=== PATIENT | male | born 1970 | race Caucasian/White ===

== ENCOUNTER 2018-03-17 15:36 | Emergency (ER) | payer SELFPAY ==
[2018-03-17 16:31] VITALS: BP 123/83; PULSE 89; TEMP 98.4; BMI 30.8
[2018-03-17] MEDS ORDERED: KETOROLAC TROMETHAMINE 60 MG/2 ML VIAL IM ONE (17:02)
[2018-03-17] MEDS ORDERED: KETOROLAC TROMETHAMINE 60 MG/2 ML VIAL ONE (17:04)
--- NOTE | 2018-03-17 17:08 | PDOC ---
History of Present Illness - General Chief Complaint: Chronic pain Stated Complaint: BACK PAIN Time Seen by Provider: 03/17/18 16:48 History Source: Patient Exam Limitations: Clinical Condition - History of Present Illness Initial Comments: 03/17/18 17:03 Patient with history of chronic back pain for 3 years now seen in [place] a month ago with CAT scan of the back showed multiple herniated disc and discharged with orthopedist follow-up the patient hasn't been able to follow-up because not having insurance. Patient reported the pain is in the lower back radiating up radiating to the sides of the lower back when he move from sitting up or laying down. Patient just moved to [place] from [place]. Patient reported 8 on a 10 lower back pain now worse with movement when laying down and getting up Past History - Past Medical History Allergies/Adverse Reactions: Allergies Allergy/AdvReac Type Severity Reaction Status Date / Time No Known Allergies Allergy Verified 03/17/18 16:31 Home Medications: Ambulatory Orders Methocarbamol [Robaxin -] 750 mg PO Q8H PRN #20 tablet 03/17/18 Naproxen 500 mg PO BID PRN #20 tablet. 03/17/18 Oxycodone HCl/Acetaminophen [Percocet 5-325 mg Tablet] 1 tab PO Q6H PRN #5 tablet MDD 4 03/17/18 COPD: No Other medical history: herniated disc - Suicide/Smoking/Psychosocial Hx Smoking History: Current every day smoker Have you smoked in the past 12 months: Yes Number of Cigarettes Smoked Daily: 10 Information on smoking cessation initiated: No Hx Alcohol Use: No Drug/Substance Use Hx: No Substance Use Type: None Review of Systems - Review of Systems Able to Perform ROS?: Yes Is the patient limited [place] proficient: No Constitutional: No: Chills, Diaphoresis, Fever, Loss of Appetite, Malaise, Night Sweats, Weakness, Weight Stable, Unintentional Wgt. Loss, Unexplained wgt Loss, Other HEENTM: No: Eye Pain, Blurred Vision, Tearing, Recent change in vision, Double Vision, Cataracts, Ear Pain, Ocular Prothesis, Ear Discharge, Nose Pain, Nose Congestion, Tinnitus, Nose Bleeding, Hearing Loss, Throat Pain, Throat Swelling , Mouth Pain, Dental Problems, Difficulty Swallowing, Mouth Swelling, Other Respiratory: No: Cough, Orthopnea, Shortness of Breath, SOB with Exertion, SOB at Rest, Stridor, Wheezing, Productive cough, Hemoptysis, Other Cardiac (ROS): No: Chest Pain, Edema, Irregular Heart Rate, Lightheadedness, Palpitations, Syncope, Chest Tightness, Other ABD/GI: No: Abdominal Distended, Abd. Pain w/ defecation, Blood Streaked Bowels , Constipated, Diarrhea, Difficulty Swallowing, Nausea, Poor Appetite, Poor Fluid Intake, Rectal Bleeding, Vomiting, Indigestion, Abdominal cramping, Tarry Stools, Other Musculoskeletal: Yes: See HPI, Back Pain (lower back), Joint Pain (lower back) All Other Systems: Reviewed and Negative *Physical Exam - Vital Signs Last Vital Signs Temp Pulse Resp BP Pulse Ox 98.4 F 89 19 123/83 100 03/17/18 16:24 03/17/18 16:24 03/17/18 16:24 03/17/18 16:24 03/17/18 16:24 - Physical Exam Comments: 03/17/18 17:06 GENERAL: Well developed, well nourished. Awake and alert. No acute distress. HEENT: Normocephalic, atraumatic. PERRLA, EOMI. No conjunctival pallor. Sclera are non- icteric. Moist mucous membranes. Oropharynx is clear. NECK: Supple. Full ROM. No JVD. Carotid pulses 2+ and symmetric, without bruits. No thyromegaly. No lymphadenopathy. CARDIOVASCULAR: Regular rate and rhythm. No murmurs, rubs, or gallops. Distal pulses are 2+ and symmetric. PULMONARY: No evidence of respiratory distress. Lungs clear to auscultation bilaterally. No wheezing, rales or rhonchi. ABDOMINAL: Soft. Non-tender. Non-distended. No rebound or guarding. No organomegaly. Normoactive bowel sounds. MUSCULOSKELETAL : Moderate tenderness to right paravertebral muscle of L2-S1. Pain worse when external rotation of hip No CVA tenderness. EXTREMITIES: No cyanosis. No clubbing. No edema. No calf tenderness. SKIN: Warm and dry. Normal capillary refill. No rashes. No jaundice. NEUROLOGICAL: Alert, awake, appropriate. Cranial nerves 2-12 intact. No deficits to light touch and temperature in face, upper extremities and lower extremities. No motor deficits in the in face, upper extremities and lower extremities. Normoreflexic in the upper and lower extremities. Normal speech. Toes are down- going bilaterally. Gait is normal without ataxia. PSYCHIATRIC: Cooperative. Good eye contact. Appropriate mood and affect. General Appearance: Yes: Nourished, Appropriately Dressed Medical Decision Making - Medical Decision Making 03/17/18 17:08 patient presenting with history of chronic back pain with multiple herniated disc on CT scan as per patient. No need for imaging today as patient just had CTs done a month ago. Toradol 60 mg IM given for pain and patient discharged with orthopedics follow-up in NSAIDs and muscle relaxer *DC/Admit/Observation/Transfer Diagnosis at time of Disposition: Lumbago Qualifiers: Chronicity: chronic Back pain laterality: bilateral Sciatica presence: without sciatica Qualified Code(s): M54.5 - Low back pain; G89.29 - Other chronic pain - Discharge Dispostion Disposition: HOME Condition at time of disposition: Stable Decision to Admit order: No - Prescriptions Prescriptions: Methocarbamol [Robaxin -] 750 mg PO Q8H PRN #20 tablet PRN Reason: Back Pain Naproxen 500 mg PO BID PRN #20 tablet. PRN Reason: Back Pain Oxycodone HCl/Acetaminophen [Percocet 5-325 mg Tablet] 1 tab PO Q6H PRN #5 tablet MDD 4 PRN Reason: Back Pain - Referrals Referrals: Joce Mauricio [Other] - Patient Instructions Printed Discharge Instructions: Managing Chronic Low Back Pain, Low Back Pain Additional Instructions: Medication as prescribed. Follow up with orthopedics referral - Post Discharge Activity
== END 2018-03-17 17:25 | disposition home or self-care (01) ==
LOC: JERFT 15:36
PROC: 3E0233Z Introduction of Anti-inflammatory into Muscle, Percutaneous Approach (ICD-10-PCS; principal; 2018-03-17)
DX: M54.5 Low back pain (principal); G89.29 Other chronic pain
CPT/HCPCS: 99281-25